=== PATIENT | female | born 2000 | race Caucasian/White ===

== ENCOUNTER → 2021-06-02 | Emergency (ER) | payer BC | END | disposition left against medical advice (07) | LOC: ER1 01:21 | DX: Z53.21 Procedure and treatment not carried out due to patient leaving prior to being seen by health care provider (principal) ==

== ENCOUNTER 2022-01-27 14:15 | Emergency (ER) | payer BC ==
[2022-01-27 15:14] LABS: HEMOGLOBIN 13.1 gm/dl (12.3-15.3); RED BLOOD COUNT 4.57 M/UL (4.00-5.10); WHITE BLOOD COUNT 7.8 K/UL (4.5-11.0)
[2022-01-27 15:48] LABS: BUN/CREATININE RATIO 18 (0-10)
[2022-01-27] MEDS ORDERED: ZOFRAN 4 MG TAB4 MG PO (16:40)
[2022-01-27] MEDS ORDERED: IBUPROFEN600 MG PO (16:40)
== END 2022-01-27 16:56 | disposition home or self-care (01) ==
LOC: ER1 14:15
PROVIDERS: Emergency Medicine
DX: N20.0 Calculus of kidney (principal); E10.9 Type 1 diabetes mellitus without complications
CPT/HCPCS: 80053; 81001; 83690; 84703; 85025; 99284